=== PATIENT | male | born 1980 | race Caucasian/White ===

== ENCOUNTER → 2024-08-11 08:51 | Outpatient (BNVA) | payer SELFPAY | PROVIDERS: PCP Family Medicine; Referring Provider Family Medicine; Visit Provider Dermatology | DX: R79.89 Other specified abnormal findings of blood chemistry (principal); Z01.89 Encounter for other specified special examinations | CPT/HCPCS: 83721; 84403 ==

== ENCOUNTER → 2024-12-31 09:00 | Outpatient (BNVA) | payer OTHER, SELFPAY | PROVIDERS: PCP Family Medicine; Visit Provider Family Medicine | DX: R79.89 Other specified abnormal findings of blood chemistry (principal) | CPT/HCPCS: 84403; 85025 ==